=== PATIENT | female | born 1995 | race American Indian/Alaskan Native ===

== ENCOUNTER 2016-10-25 19:08 | Observation (INO) | payer BC ==
[2016-10-25] MEDS ORDERED: Lactated Ringers 1,000 ML IV ONE (19:39)
[2016-10-25] MEDS: Lactated Ringers 1,000 ML IV SCH (20:53)
[2016-10-25] MEDS ORDERED: Betamethasone Acetate/Betamethasone Sod Phosphate 30 MG/5 ML MDV IM ONE (21:21)
[2016-10-25] MEDS ORDERED: cefTRIAXone 1 GM in Sodium Chloride 0.9% 50 ML IV ONE (21:53)
[2016-10-25] MEDS: Amoxicillin/Clavulanate K 875-125 MG Tab PO SCH (22:22)
[2016-10-25] MEDS: metroNIDAZOLE 250 MG Tab PO SCH (22:23)
--- NOTE | 2016-10-25 22:56 | PCM.SN ---
- Free Text/Narrative Note: 10-25-16 fibronectin positive, however, cervix was noted to be friable on exam with swab, and blood may have affected results. Recheck of cervix now shows cervix unchanged. Still external os thick with long tunnel to internal os, but internal os 2cm. Vertex is palpable but ballotable and not well applied to cervix. contractions spacing out, but still feeling them. baby VERY active. Will continue to monitor closely. Will check US, CBC, BMP in a.m. monitor glucose fasting and postprandial due to glucose intolerance of . Caitlin knows that if cxns increase, or cervix changes--may need transfer to for NICU availability as discussed. Has gotten betamethasone dose #1. Has also had antibiotics as ordered, and continues with IV fluids and po fluids and diet. All questions answered. hmb
--- NOTE | 2016-10-25 23:05 | HP ---
CHIEF COMPLAINT: Abdominal pain in the 3rd trimester. HISTORY OF PRESENT ILLNESS: This 21-year-old , G3, P2, at 31 and 1/7th-week gestation presented to the emergency room, apparently brought in by ambulance with some stomach discomfort. Reports that she started feeling some pains in her abdomen last night about 10 o'clock. Does feel some in her back at times. They have been on and off all day. She denies any vaginal fluid leakage or bleeding. She denies any dysuria or hematuria. No fever. The baby has been active. She is unsure if they feel like contractions, but reports that she cannot really remember exactly what her last contractions felt like. She has not had any other illnesses and denies fever or visual changes, and does not complain of headaches, swelling, or preeclampsia symptoms. The patient is currently visiting. She lives in the [facility] and gets her care elsewhere by Dr. Romy Dukes in [place] and we were able to obtain those records, which have been faxed to us. She is currently here visiting her boyfriend's family. Has been with her significant other for many years and he is the father of all 3 of her pregnancies per her report. He is currently in a retreat and she has not seen him and denies intercourse for the last couple of weeks. Has been eating and drinking and denies nausea, vomiting, or diarrhea. She is voiding okay. Review of her notes show LMP 03/21/2016, due date 12/26/2016 with 2 ultrasounds done during this , 1 at 19-1/2 weeks and 1 at 24 weeks, both within a few days of her due date. Her blood type is A positive, antibody screen was negative. Hemoglobin 11.5, platelet count 364. Rubella immune. RPR nonreactive. Hepatitis B surface antigen negative. Hepatitis C testing negative. HIV negative. Chlamydia and GC testing negative during this . Thyroid testing was normal. Her 1- hour sugar screen was elevated at 161 and her 3-hour testing showed a fasting of 100 with other values within normal limits, which should be consistent with glucose intolerance of , but not diagnostic of gestational diabetes. Her last hemoglobin was low at 9.6. First trimester urine culture showed E. coli, which was sensitive to all antibiotics and she was treated with Macrobid. [facility] PAST HISTORY: First delivery on 11/07/2014 at 37 weeks, 7-1/2 pound female infant by spontaneous vaginal delivery, named Paola, delivering physician, Dr. Hernandez. Second delivery, delivery at 36 weeks 6 days on 12/08/2015, 7-pound 1 ounce female by spontaneous vaginal delivery, named Kiran, by Dr. Dukes. #3 is her current . PAST MEDICAL HISTORY: Unremarkable. There is some question of MRSA in the past. PAST SURGERY: She has had tooth extraction, but no significant past surgical history. FAMILY HISTORY: Positive for cancer in her mother and maternal grandfather. Heart disease in her dad. Diabetes in her mother. CURRENT MEDICATIONS: vitamins. ALLERGIES: No known medical allergies. List sensitivities to chocolate (hives) and bee stings (swelling, sedation). SOCIAL HISTORY: Significant other as noted. She dropped out of school as a senior and did not graduate from high school or get her GED. She currently is unemployed. She is not a student. She is home with her 2 daughters. 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 Reports she has plenty of money and frequently goes to [employer]. She denies smoking tobacco or marijuana. Denies significant alcohol use. Denies drug use. REVIEW OF SYSTEMS: Otherwise, noncontributory. PHYSICAL EXAMINATION: GENERAL: She is afebrile. VITAL SIGNS: Her vitals are stable. Please see graphics for details. She is 5 feet 6 inches, 200 pounds. Temp 97.5 with a pulse of 102 on admission, blood pressure 121/81, and respiratory rate 16. HEENT: Negative. LUNGS: Clear. HEART: Sounds regular. ABDOMEN: Gravid with fundal height of nearly 34. Baby is in a vertex presentation by Van's maneuvers. EXTERNAL GENITALIA: Appear within normal limits. A cath urine specimen was obtained by or. A speculum examination showed a beefy red mucosa with thick white discharge both in the cervix and white plaques on the vaginal mucosa. Swab was obtained for a wet prep. Swab was obtained off the posterior lip of the cervix for fibronectin. A digital exam done of the cervix showed it to be between 3 and 4 cm long, though I was able to tunnel my fingers up through the cervix which is about 2 cm dilated, but is thick as noted. Vertex is palpable, but did appear ballotable. There is no sign of bleeding or fluid leaking. I did very gentle exam. She has no significant peripheral edema. NST shows a baseline heart rate in the 145-150 range with good accelerations and no worrisome decelerations seen. On arrival, she was misty every 2 to 4 minutes. Those have spaced out since her fluid boluses. They were palpable on admission. She does seem to have some tenderness especially in the right flank and suprapubic area. LAB WORK: Urinalysis shows 5-10 rbc's, 10-20 white blood cells, epithelial cells present, and many bacteria noted. Also positive urine nitrite and a trace of ketones. Specific gravity at 1.020 and she has received some IV fluids. Urine appearance is turbid and dark yellow and also was noted to be malodorous. Urine drug screen is negative. Wet prep was also noted to be positive for Clue cells. ULTRASOUND: Quick look was done that confirms the baby in a vertex presentation. The baby is active. activity and cardiac activity confirmed. A generous amount of amniotic fluid is noted and baby appears to be female. IMPRESSION: 1. A 21-year-old , G3, P2, at 31 and 1/7th-week gestation with contractions. 2. History of 1 delivery at 36 and 6/7th weeks' gestation. 3. Vaginal discharge with bacterial vaginosis noted. 4. Urinary tract infection. 5. A positive blood type. 6. Rubella immune. 7. Anemia. 8. Glucose intolerance of . 9. Reactive NST. 10.Cervix currently 2 cm dilated, but very thick with fibronectin pending. PLAN: At this point, we will continue to watch her closely. We will treat her bacterial vaginosis with Flagyl. We will treat her UTI with Augmentin orally. Looking at her urine results, it does look like this is fairly significant UTI clinically and we will give her some IV Rocephin also. We will continue with her IV fluid supplementation and ensure oral intake. Urine culture is pending and will adjust the medication if needed. We will recheck her cervix and see if there are any changes. The patient understands that if her contractions progress and that looks like her cervix is changing at all, she will require transfer to [facility] where they are able to handle a baby. At this time, it appears that her contractions may be spacing out. We did give her betamethasone injection. Review of her chart show that with her last her cervix was 3-4 cm dilated at 34-1/2 weeks' gestation. Further management pending her clinical course and test results and all of her questions were answered. Condition at this time appears stable, but will watch closely. [facility] /[id number]
[2016-10-26] MEDS: Lactated Ringers 1,000 ML IV SCH ×3 (04:08→21:52)
[2016-10-26 07:05] LABS: CHLORIDE,CL 104 mmol/L (101-111); SODIUM,NA 133 mmol/L (135-145)
--- NOTE | 2016-10-26 09:05 | US ---
CLINICAL HISTORY: 21-year-old gravid female in her early third trimester (31 weeks?) who presents wi th urinary tract infection and is reportedly "3-4 cm dilated" (only one contraction over the night). INTERPRETATION: Enlarged uterus with a single live ( heart rate 133 bpm) intrauterine gestation, longitudinal l ie and cephalic presentation. Satisfactory amniotic fluid volume (ROSALIE 13 cm). Healthy appearing placenta located posteriorly corpu s of the uterus with the leading edge free of the internal cervical os (ill-defined "echodensity jere r the internal os" of questionable significance, i.e., doubt succenturiate lobe placenta). Biparietal diameter 7.63 cm approximates a 30 week 5 day gestation; head circumference 28.24 cm equa ls a 31 week gestation; abdominal circumference 27.17 cm equals a 31 week 2 day gestation; and femur length 6.15 cm equals a 32 week gestation for an average ultrasound age of 31 weeks 2 days and an e stimated weight 1754 g (3 lbs. 14 oz.). NOTE: Endovaginal exam cervix and cervical length not performed at this time. CONCLUSION: Enlarged uterus with a single live 31 week 2 day intrauterine gestation, cephalic presen tation and posterior placenta.
[2016-10-26] MEDS: Amoxicillin/Clavulanate K 875-125 MG Tab PO SCH ×2 (09:27→20:48)
[2016-10-26] MEDS: metroNIDAZOLE 250 MG Tab PO SCH ×2 (09:27→20:48)
--- NOTE | 2016-10-26 11:50 | PCM.SN ---
- Free Text/Narrative Note: DOS: 10-26-[address] Romy Dukes @ [facility] [phone] re: Benji Updated her on the patient's status and treatment plan. She is comfortable with current management and will see her next week in follow up. riley
[2016-10-26] MEDS: cefTRIAXone 1 GM in Sodium Chloride 0.9% 50 ML IV SCH (12:06)
[2016-10-26] MEDS: Ferrous Sulfate 325 MG Tab PO SCH ×2 (12:08→17:47)
[2016-10-26] MEDS: Prenatal Multivitamin with Calcium/Folic Acid/Iron Tab PO SCH (12:08)
--- NOTE | 2016-10-26 12:45 | PN ---
DATE: 10/26/2016 FINDINGS: This 21-year-old, G3, P2 is currently at 31 and 2/7th weeks' gestation and presented last night with stomach and back pain and was found to be having contractions and urinary tract infection and bacterial vaginosis. She was started on IV fluids, IV and oral antibiotics, and IM betamethasone. Since that time, her contractions have essentially resolved. The baby has continued to trace with a reassuring pattern. She was also found to have fairly severe anemia with a hemoglobin of 8.6 this morning. We were unable to get an ultrasound last night. She slept fairly well and this morning I did check her cervix which has remained unchanged. She is eating well and was found on review of her notes to have glucose intolerance of though they have not been following her sugars. She has no new concerns today and does admit to feeling better. Please see her admission H and P and notes for further details. OBJECTIVE: General: On examination today, she looks well. She is in no acute distress. Vital Signs: She has been afebrile through the night. Her temp is 97.8 today with the pulse down to 88, blood pressure 113/60, respiratory rate 16. Skin: Color and turgor excellent. : Her cervical exam shows her to be unchanged. The internal os remains at 2 cm. The cervix remains long, thick, but soft. The vertex remains ballotable. She has no edema. Baby remains in the cephalic position. LABORATORY DATA: Lab work today shows a white count 11.1, hemoglobin 8.6, platelet count 363 and does have a left shift with neutrophils 85.9, lymphocytes 12.1. Sodium 133 this morning, potassium 3.8, chloride 104, BUN 6, creatinine 0.4, glucose 141, and calcium 8.6. NST is reactive. Ultrasound done this morning shows a single live intrauterine with heart rate of 133, cephalic presentation with satisfactory amniotic fluid volume an ROSALIE of 13. Healthy-appearing posterior placenta with no sign of previa, measuring at 31 weeks 2 days. Average ultrasound age with an estimated weight of 1754 g/3 pounds 14 ounces. Please see the radiology note for details. IMPRESSION: 1. This is a 21-year-old , 3 para 2 at 31+ weeks gestation. 2. Urinary tract infection, currently being treated with urine culture pending. 3. contraction, resolved. 4. Cervix 2 cm dilated, unchanged/stable. 5. Bacterial vaginosis, being treated with Flagyl. 6. Glucose intolerance of with elevated blood sugar. 7. Reassuring status. 8. Maternal anemia with hemoglobin 8.6. PLAN: We will continue with her antibiotic therapy for her UTI. We will give her 2nd dose of betamethasone this evening and continue to monitor her closely for increasing contractions. We will have her continue vitamins 1 daily and add iron t.i.d. We will continue to monitor her blood glucose 2 hour postprandial to see if she shows signs of gestational diabetes. We will attempt to get a hold of Dr. Dukes today, phone #[phone]. The patient states she has an appointment next week, however, on further review her appointment is apparently 2 weeks away. She will likely need followup sooner than this. She is supposed to attend a rodeo next week and is advised that she will be on light activity from this point until 37 weeks' gestation. She will remain with us until tomorrow morning and if things appear stable at that time and she will have received both doses of her betamethasone and 3 doses of the Rocephin, we can look at discharging her home on oral Augmentin and Flagyl along with her vitamin and iron. 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 All of her questions were answered. [facility] /[id number]
[2016-10-26] MEDS ORDERED: Betamethasone Acetate/Betamethasone Sod Phosphate 30 MG/5 ML MDV IM ONE (22:00)
[2016-10-27] MEDS: Lactated Ringers 1,000 ML IV SCH (04:26)
[2016-10-27] MEDS: cefTRIAXone 1 GM in Sodium Chloride 0.9% 50 ML IV SCH (08:30)
[2016-10-27] MEDS: Prenatal Multivitamin with Calcium/Folic Acid/Iron Tab PO SCH (08:59)
[2016-10-27] MEDS: metroNIDAZOLE 250 MG Tab PO SCH (08:59)
[2016-10-27] MEDS: Ferrous Sulfate 325 MG Tab PO SCH (08:59)
[2016-10-27] MEDS: Amoxicillin/Clavulanate K 875-125 MG Tab PO SCH (08:59)
[2016-10-27 10:53] VITALS: BP 112/60
--- NOTE | 2016-10-28 01:41 | DISCH ---
FINAL DIAGNOSES: 1. A 21-year-old , G3, P2 at 31 and 3/7th-week gestation. 2. Urinary tract infection and Escherichia coli. 3. Bacterial vaginosis. 4. contractions resolved with no sign of labor. 5. Glucose intolerance of . 6. A positive blood type. 7. Anemia with hemoglobin of 8.6. 8. Rubella immune. 9. Reassuring status with reactive NSTs. FINDINGS: This is a 21-year-old 3, para 2, presented at 31 and 17th-week gestation with onset of lower pelvic and back discomfort and contractions. On exam, she was found to have a urinary tract infection and bacterial vaginosis and also to be having contractions every 2 to 4 minutes and cervix dilated to 2 cm. Her hemoglobin was also found to be 8.6 and her blood sugar elevated at 147. We did obtain her records and had evaluation here on the OB floor and was subsequently admitted for further evaluation and management. Please see her admission H and P and notes for further details. Her NST was reassuring. She was started on IV fluids and IV Rocephin. She was started on Flagyl for treatment of her bacterial vaginosis. We monitored her diet. Hemoglobin was 8.6 and she was started on vitamins and iron t.i.d. Her contractions resolved. Her cervix remained unchanged throughout her hospitalization. Her status remained reassuring. Her vitals were stable and she was afebrile throughout. Urine culture shows preliminary findings of E. coli. She received 3 doses of IV Rocephin during her stay and is discharged home on Augmentin 875 one b.i.d. with food. Her 2-hour postprandial blood sugars have been 120-130 with her fasting at 147 and 141 as noted. This is consistent with glucose intolerance of , but also worrisome for possible gestational diabetes and her diet is a concern. We discussed this and she may need continued monitoring and possible dietary consult. Discussed concerns of gestational diabetes with her. The patient was examined on 10/27/2016 and felt to be stable and ready for discharge and was discharged home in good condition. She is advised to be on light activity only. She will be seen by her usual provider, Dr. Romy Dukes on Sunday and the patient reports she scheduled an appointment for 10/30/2016 at 8:00 a.m. and she will follow up sooner with any problems. I have personally spoken with the physician and she is aware of her status and has access to the notes on the computer. The patient will continue to take a lots of fluids. She will continue her Augmentin 875 b.i.d. for the UTI. We will continue her Flagyl 500 b.i.d. to complete a 1-week course for the bacterial vaginosis. Pelvic rest at this time. We will watch her diet with low sugar and low carbs. We will continue vitamins daily and iron b.i.d. to t.i.d. Further management pending her clinical course. We did give her betamethasone 12 mg IM shortly after admission and repeated at 24 hours for lung maturity. The patient is aware of this. She does understand the risk of early delivery regarding the concerns. She also had ultrasound while she was here, which showed normal amount of fluid and assessment appeared within normal limits. All of her questions were answered. Please see her discharge orders and notes for further information. [facility] /[id number]
== END 2016-10-27 10:15 | disposition home or self-care (01) ==
LOC: DL.OBCHECK 19:08 → EEVIPCON 22:18 → DL.OB 22:18
PROVIDERS: ADMIT Family Medicine; ATTEND Family Medicine
DX: O23.43 Unspecified infection of urinary tract in pregnancy, third trimester (principal); B96.20 Unspecified Escherichia coli [E. coli] as the cause of diseases classified elsewhere; Z3A.01 Less than 8 weeks gestation of pregnancy; O23.593 Infection of other part of genital tract in pregnancy, third trimester; N76.0 Acute vaginitis; B96.89 Other specified bacterial agents as the cause of diseases classified elsewhere; E74.39 Other disorders of intestinal carbohydrate absorption; O98.513 Other viral diseases complicating pregnancy, third trimester; O99.013 Anemia complicating pregnancy, third trimester; Z98.890 Other specified postprocedural states; Z79.899 Other long term (current) drug therapy; Z91.030 Bee allergy status; Z91.018 Allergy to other foods; O34.33 Maternal care for cervical incompetence, third trimester
CPT/HCPCS: 36415; 76815; 80048; 80305; 81001; 82731; 82962; 85025; 87086; 87210; A9270; J0696; J7050; J7120; 87088; 87186; 96361; 96365; 96366; 96375; 96376; G0378